=== PATIENT | female | born 1990 | race Caucasian/White ===

== ENCOUNTER 2016-07-21 08:13 | Day surgery (SDC) | payer OTHER ==
[2016-07-18 11:06] VITALS: BMI 25.7
[2016-07-21] VITALS (11 sets, daily range): BP systolic 115–141; BP diastolic 60–91; PULSE 50–68; RESP 18–23; Ht 162.6 cm; Wt 70.0 kg
[~2016-07-21] VITALS: Ht 162.6 cm; Wt 70.0 kg
[2016-07-21] MEDS ORDERED: CEFAZOLIN 2 GM/50 ML (PMX) 50 ML IVPB ONE (10:00)
[2016-07-21] MEDS ORDERED: SOD CHLORIDE 0.9% 1,000 ML IV ONE (10:00)
[2016-07-21] MEDS ORDERED: GLYCOPYRROLATE 0.4 MG INJ ONE (10:19)
[2016-07-21] MEDS ORDERED: ONDANSETRON 4 MG INJ ONE (10:20)
[2016-07-21] MEDS ORDERED: LIDOCAINE 100 MG SYRINGE ONE (10:20)
[2016-07-21] MEDS ORDERED: FENTAnyl 50 MCG/ML VIAL ONE (10:20)
[2016-07-21] MEDS ORDERED: NEOSTIGMINE 3 MG/3 ML SYRINGE ONE (10:20)
[2016-07-21] MEDS ORDERED: ROCURONIUM 50 MG INJ ONE (10:20)
[2016-07-21] MEDS ORDERED: DEXAMETHASONE 4 MG/ML 1 ML INJ ONE (10:20)
[2016-07-21] MEDS ORDERED: PROPOFOL 20 ML ONE (10:20)
[2016-07-21] MEDS ORDERED: MIDAZOLAM 1 MG/ML 2 ML INJ ONE (10:20)
[2016-07-21] MEDS ORDERED: BUPIVACAINE 0.25% (MPF) 30 ML INJ ONE (10:46)
[2016-07-21] MEDS ORDERED: CEFAZOLIN 1 GM INJ ONE (11:24)
[2016-07-21] MEDS ORDERED: TRIMETHOBENZAMIDE 100 MG/ML VIAL IM PRN (11:30)
[2016-07-21] MEDS ORDERED: FENTAnyl 50 MCG/ML VIAL IV PRN ×3 (11:30)
[2016-07-21] MEDS ORDERED: ONDANSETRON 4 MG INJ IV PRN (11:30)
[2016-07-21] MEDS ORDERED: DIPHENHYDRAMINE 50 MG INJ IV PRN (11:30)
[2016-07-21] MEDS ORDERED: MIDAZOLAM 1 MG/ML 2 ML INJ IV PRN (11:30)
[2016-07-21] MEDS ORDERED: HYDROmorphONE (0.2 MG/ML) 10ML SYG IV PRN ×3 (11:30)
[2016-07-21] MEDS ORDERED: LABETALOL HCL 20MG INJ IV PRN (11:30)
[2016-07-21] MEDS ORDERED: MEPERIDINE 25 MG INJ IV PRN (11:30)
[2016-07-21] MEDS ORDERED: hydrALAzine 20 MG INJ IV PRN (11:30)
[2016-07-21] MEDS ORDERED: EPHEDrine SULFATE 50 MG/5 ML SYG IV PRN (11:30)
[2016-07-21] MEDS ORDERED: HYDROCODONE/APAP (5/325) TAB PO ONE (12:00)
--- NOTE | 2016-07-21 18:29 | OPR ---
DATE OF OPERATION: 07/21/2016 INDICATIONS: This is a 26-year-old female with a right breast tumor. She requests surgical excisio n. Risks, alternatives, benefits, and personnel were discussed with the patient. The patient expre ssed understanding and consents to the operation. PREOPERATIVE DIAGNOSIS: Right breast tumor. PREOPERATIVE DIAGNOSIS: Right breast tumor. OPERATION PERFORMED: 1. Excision of right breast tumor with a needle local biopsy with incision of 5 cm size mass. 2. Localized adjacent tissue transfer with use of skin flaps. SURGEON: Zeny Sweet MD SPECIMEN: Right breast tumor. COMPLICATIONS: None. ANESTHESIA: General. PROCEDURE: The patient was taken to the OR and prepped and draped in the usual sterile fashion. Loza rgical timeout was performed. IV antibiotics were given. A curvilinear incision was made in the [facility] upper breast over the mass after imaging was reviewed. Dissection cautery was carried down to t he tumor which was identified with the needle localization. The mass was excised en bloc along with the wire. There was good hemostasis. Due to the large tissue defect, localized adjacent tissue tr ansfer was performed with multilayer closure with interrupted 3-0 Vicryl and running 4-0 Monocryl. Local anesthesia was injected. Dry dressings were applied. Dictated By: ZENY MASON/MENA Conf#: [id number] DID#: [id number]
== END 2016-07-21 13:59 | disposition home or self-care (01) ==
LOC: SDS 08:13
PROVIDERS: ATTEND Surgery
DX: D24.1 Benign neoplasm of right breast (principal)
CPT/HCPCS: 19120; 84703; 88307; J0690; J1100; J2001; J2250; J2405; J2710; J3010; Z7512; Z7610